=== PATIENT | female | born 1990 ===

== ENCOUNTER 2018-03-26 10:17 | Emergency (ER) | payer OTHER ==
[2018-03-26 10:30] VITALS: BP 107/67; PULSE 72; RESP 20; TEMP 98.1; O2SAT 99
--- NOTE | 2018-03-26 10:41 | C.PDOC ---
History Of Present Illness 27 year old female presents to the ED for evaluation of dry cough, myalgia, and pleuritic pain for one week. Denies fever, asthma, smoker. Patient reports no improvement with [id number] vicks. DRY COUGH, MYALGIA, PLEURITIC PAIN X 1 WEEK. NO FEVER, ASTHMA SMOKER. NO IMPROVE W VICKS OTC EXAM NARD HEENT NEG LUNGS CTA B/L NO W/R/R OCC DRY COUGH REMAINDER NEG Time Seen by Provider: 03/26/18 10:35 Chief Complaint (Nursing): Flu-like Symptoms History Per: Patient History/Exam Limitations: no limitations Onset/Duration Of Symptoms: Other (one week ) Current Symptoms Are (Timing): Still Present Associated Symptoms: Cough. denies: Fever, Sputum Additional History Per: Patient Past Medical History Reviewed: Historical Data, Nursing Documentation, Vital Signs Vital Signs: Last Vital Signs Temp 98.1 F 03/26/18 10:28 Pulse 72 03/26/18 10:28 Resp 20 03/26/18 10:28 BP 107/67 03/26/18 10:28 Pulse Ox 99 03/26/18 10:28 - Medical History PMH: No Chronic Diseases Surgical History: No Surg Hx Family History: States: Unknown Family Hx - Social History Hx Alcohol Use: Yes Hx Substance Use: No - Immunization History Hx Tetanus Toxoid Vaccination: No Hx Influenza Vaccination: No Hx Pneumococcal Vaccination: No Review Of Systems Respiratory: Positive for: Cough, Other (pleuritic pain ). Negative for: Sputum Musculoskeletal: Positive for: Other (generalized myalgia) Physical Exam - Physical Exam Appears: Non-toxic, Other (no acute respiratory distress ) Skin: Normal Color, Warm, Dry Head: Atraumatic, Normacephalic Eye(s): bilateral: Normal Inspection Ear(s): Bilateral: Normal Nose: Normal, No Discharge Oral Mucosa: Moist Throat: Normal, No Erythema, No Exudate Neck: Supple Chest: Symmetrical, No Deformity, No Tenderness Cardiovascular: Rhythm Regular, No Murmur Respiratory: Normal Breath Sounds, No Rales, No Rhonchi, No Wheezing, Other (clear to auscultation bilaterally. occasional dry cough noted ) Extremity: Normal ROM, Capillary Refill (less than 2 seconds ) Neurological/Psych: Oriented x3, Normal Speech, Normal Cognition ED Course And Treatment O2 Sat by Pulse Oximetry: 99 (on RA) Pulse Ox Interpretation: Normal Disposition Counseled Patient/Family Regarding: Diagnosis, Need For Followup, Rx Given - Disposition Referrals: [facility] [Outside] [facility] [Outside] Disposition: HOME/ ROUTINE Disposition Time: 10:40 Condition: GOOD Prescriptions: Benzonatate [Tessalon Perles] 200 mg PO TID PRN #15 sgl PRN Reason: Cough Ibuprofen [Motrin] 600 mg PO Q6 #30 tab Instructions: Acute Bronchitis, Adult (DC) Forms: [employer] (Nepali) Print Language: SINGAPOREAN - Clinical Impression Clinical Impression: Bronchitis, Myalgia - Scribe Statement The provider has reviewed the documentation as recorded by the Scribe (Marli Moya) Provider Attestation: All medical record entries made by the Scribe were at my direction and personally dictated by me. I have reviewed the chart and agree that the record accurately reflects my personal performance of the history, physical exam, medical decision making, and the department course for this patient. I have also personally directed, reviewed, and agree with the discharge instructions and disposition.
== END 2018-03-26 10:49 | disposition home or self-care (01) ==
LOC: C.ER 10:17
DX: J40 Bronchitis, not specified as acute or chronic (principal); M79.10 Myalgia, unspecified site